=== PATIENT | female | born 1975 | race Caucasian/White ===

== ENCOUNTER → 2021-01-27 | Outpatient (CLI) | payer BC | LOC: KOH-I 08:00 | DX: M79.661 Pain in right lower leg (principal); M79.662 Pain in left lower leg | CPT/HCPCS: 93970 ==

== ENCOUNTER → 2021-02-14 | Outpatient (CLI) | payer BC | LOC: KOH-I 02-09 15:30 | DX: R59.0 Localized enlarged lymph nodes (principal) | CPT/HCPCS: 76882 ==

== ENCOUNTER 2022-03-12 08:39 | Inpatient (IN) | payer BC ==
[~2022-03-12] VITALS: Ht 162.6 cm; Wt 88.6 kg
[2022-03-12 09:11] LABS: HEMOGLOBIN 12.9 gm/dl (12.3-15.3); RED BLOOD COUNT 4.35 M/UL (4.00-5.10); WHITE BLOOD COUNT 4.4 K/UL (4.5-11.0)
[2022-03-12 10:14] LABS: BUN/CREATININE RATIO 16 (0-10)
[2022-03-12 16:47] LABS: BUN/CREATININE RATIO 13 (0-10)
[2022-03-12 19:21] LABS: BUN/CREATININE RATIO 11 (0-10)
[2022-03-13 05:52] LABS: HEMOGLOBIN 11.9 gm/dl (12.3-15.3); WHITE BLOOD COUNT 4.9 K/UL (4.5-11.0)
[2022-03-13 06:52] LABS: BUN/CREATININE RATIO 9 (0-10)
[2022-03-13] MEDS ORDERED: PHENTERMINE H37.5 M1 PO (09:33)
[2022-03-13] MEDS ORDERED: SUBOXONE 8 MG-1 EACH SL (09:33)
[2022-03-14 14:13] LABS: BUN/CREATININE RATIO 5 (0-10)
[2022-03-14 14:35] LABS: HEMOGLOBIN 13.4 gm/dl (12.3-15.3); WHITE BLOOD COUNT 5.2 K/UL (4.5-11.0)
[2022-03-14 14:37] LABS: RED BLOOD COUNT 4.5 M/UL (4.00-5.10)
[2022-03-15 06:29] LABS: HEMOGLOBIN 13.6 gm/dl (12.3-15.3); RED BLOOD COUNT 4.63 M/UL (4.00-5.10); WHITE BLOOD COUNT 4.4 K/UL (4.5-11.0)
[2022-03-15 07:07] LABS: BUN/CREATININE RATIO 8 (0-10)
[2022-03-16 05:32] LABS: HEMOGLOBIN 14.7 gm/dl (12.3-15.3); RED BLOOD COUNT 4.92 M/UL (4.00-5.10); WHITE BLOOD COUNT 5.7 K/UL (4.5-11.0)
[2022-03-16 06:09] LABS: BUN/CREATININE RATIO 12 (0-10)
[2022-03-16] MEDS ORDERED: BUSPIRONE HCL5 MG PO (06:19)
[2022-03-16] MEDS ORDERED: PEPCID20 MG PO (07:00)
== END 2022-03-16 09:18 | disposition home or self-care (01) | DRG 885 ==
LOC: ER1 08:39 → MED SURG 4 21:11 → CDU 21:11 → MED SURG 4 22:54
PROVIDERS: Family Medicine; Internal Medicine; ADMIT Internal Medicine
DX: F20.0 Paranoid schizophrenia (principal); M62.82 Rhabdomyolysis; F11.20 Opioid dependence, uncomplicated; Z20.822 Contact with and (suspected) exposure to COVID-19; E11.9 Type 2 diabetes mellitus without complications; F31.9 Bipolar disorder, unspecified; E87.6 Hypokalemia; F17.210 Nicotine dependence, cigarettes, uncomplicated; F41.9 Anxiety disorder, unspecified; I10 Essential (primary) hypertension; Z90.49 Acquired absence of other specified parts of digestive tract; Z91.14 Patient's other noncompliance with medication regimen; Z88.1 Allergy status to other antibiotic agents; Z88.5 Allergy status to narcotic agent; Z88.0 Allergy status to penicillin; Z88.8 Allergy status to other drugs, medicaments and biological substances; Z82.49 Family history of ischemic heart disease and other diseases of the circulatory system
CPT/HCPCS: 36415; 70450; 71045; 80048; 80053; 80307; 82140; 82550; 82553; 83735; 83874; 84100; 84439; 84443; 84484; 84703; 85025; 93005; 96372; 96374; 96376; 99285; G0480; J1630; J1650; J2250; J3480; J7030; U0002